=== PATIENT | male | born 1965 | race Caucasian/White ===

== ENCOUNTER 2017-07-13 14:21 | Emergency (ER) | payer SELFPAY ==
[~2017-07-13] VITALS: Ht 180.3 cm; Wt 80.0 kg
[~2017-07-13 14:21] MED LIST: ALBU6.7H INH; ERYT.5%O LEFT EYE; MEDR4PAK3 PO; PERC5TAB12 PO
[2017-07-13 14:23] VITALS: BP 132/72; PULSE 81; RESP 14; TEMP 97.8; O2SAT 97
[2017-07-13] MEDS ORDERED: ALBU6.7H INH (14:34)
[2017-07-13 14:35] VITALS: BP 136/81; PULSE 76; RESP 20; O2SAT 98
[2017-07-13 14:37] VITALS: PULSE 78; RESP 20; O2SAT 98
--- NOTE | 2017-07-13 14:37 | PD ---
HPI Chief Complaint: Respiratory Symptoms Time Seen by Provider: 14:34 Travel History International Travel<30 days: No Contact w/Intl Traveler<30days: No Traveled to known affect area: No History of Present Illness HPI 51-year-old male complains of wheezing and shortness of breath. Patient has history of asthma. Patient states that he has chronic shortness of breath. Patient states that shortness breath is worse today. Patient is a nonsmoker. Patient denies any coughing congestion fever chills. Patient denies any chest pain. Patient has history umbilical hernia recently. Patient states that he gained weight recently. PFSH Past Medical History Asthma: Yes (BRONCHIAL ASTHMA) Diminished Hearing: No Gastrointestinal Disorders: Yes (UMBILICAL HERNIA) Immunizations Current: No ?: Not Social History Alcohol Use: Yes (COUPLE DRINKS A DAY) Tobacco Use: No Substance Use: No Allergies-Medications (Allergen,Severity, Reaction): Coded Allergies: codeine (Verified Adverse Reaction, Intermediate, Rash, 07/13/17) Reported Meds & Prescriptions Reported Meds & Active Scripts Active Prednisone 20 Mg Tab 20 Mg PO BID Ventolin Hfa 18 GM Inh (Albuterol Sulfate) 90 Mcg/Act Aer 2 Puff INH Q4-6H PRN Reported Proventil Hfa 6.7 GM Inh (Albuterol Sulfate) 90 Mcg/Act Aer 2 Puff INH Q4-6H PRN Review of Systems General / Constitutional: No: Fever Eyes: No: Visual changes HENT: No: Headaches Cardiovascular: No: Chest Pain or Discomfort Respiratory: Positive: Shortness of Breath, Wheezing Gastrointestinal: No: Abdominal Pain Genitourinary: No: Dysuria Musculoskeletal: No: Pain Skin: No Rash Neurologic: No: Weakness Psychiatric: No: Depression Endocrine: No: Polydipsia Hematologic/Lymphatic: No: Easy Bruising Physical Exam Narrative GENERAL: Well-nourished, well-developed patient. SKIN: Focused skin assessment warm/dry. HEAD: Normocephalic. EYES: No scleral icterus. No injection or drainage. NECK: Supple, trachea midline. No JVD or lymphadenopathy. CARDIOVASCULAR: Regular rate and rhythm without murmurs, gallops, or rubs. RESPIRATORY: Breath sounds equal bilaterally. No accessory muscle use. Mild expiratory wheezes bilaterally. Few rhonchi at the bases. GASTROINTESTINAL: Abdomen soft, non-tender, nondistended. MUSCULOSKELETAL: No cyanosis, or edema. BACK: Nontender without obvious deformity. No CVA tenderness. Neurologic exam normal. Data Data Last Documented VS Vital Signs Date Time Temp Pulse Resp B/P (MAP) Pulse Ox O2 Delivery O2 Flow Rate FiO2 07/13/17 14:37 78 20 98 Room Air 07/13/17 14:23 97.8 Orders Orders Electrocardiogram (07/13/17 14:34) Oximetry (07/13/17 14:34) Chest, Single Ap (07/13/17 14:34) Albuterol-Ipratropium Neb (Duoneb Neb) (07/13/17 14:45) Dexamethasone Inj (Decadron Inj) (07/13/17 14:45) Ed Discharge Order (07/13/17 15:53) [facility] Medical Decision Making Medical Screen Exam Complete: Yes Emergency Medical Condition: Yes Interpretation(s) Chest x-ray shows no acute consolidation. Differential Diagnosis Differential diagnosis including acute exacerbation asthma, bronchitis, pneumonia. Narrative Course 51-year-old male with shortness of breath and wheezing. History of asthma. Albuterol with Atrovent unit dose treatment times one. Decadron 8 mg IM. Diagnosis Primary Impression: Exacerbation of asthma Qualified Codes: J45.21 - Mild intermittent asthma with (acute) exacerbation Patient Instructions: General Instructions Additional Instructions: Use albuterol inhaler as directed. Prednisone as directed. Follow-up with personal physician. Return if worse. Med/Other Pt SpecificInfo: Prescription(s) given Scripts Prednisone (Prednisone) 20 Mg Tab 20 MG PO BID, #10 TAB 0 Refills Prov: Viraj Valles MD 07/13/17 Albuterol 18 GM Inh (Ventolin Hfa 18 GM Inh) 90 Mcg/Act Aer 2 PUFF INH Q4-6H Y for SHORTNESS OF BREATH, #1 INHALER 0 Refills Prov: Viraj Valles MD 07/13/17 Disposition: 01 DISCHARGE HOME Condition: Stable Viraj Valles MD Jul 13, 2017 14:37
[2017-07-13] MEDS ORDERED: DEXAMETHASONE SOD PHOS 4 MG/ML VIAL IM ONE (14:45)
[2017-07-13] MEDS ORDERED: RESP: ALBUTEROL 2.5 MG/IPRATROPIUM 0.5 MG NEB (SCH) INH ONE (14:45)
--- NOTE | 2017-07-13 15:49 | RADRPT ---
EXAM DATE/TIME: 07/13/2017 15:04 [place] COMPARISON: CHEST SINGLE AP, September 02, 2014, 4:58. INDICATIONS : Short of Breath MEDICAL HISTORY : Asthma, Asbestos exposure SURGICAL HISTORY : None. ENCOUNTER: Initial ACUITY: 1 day PAIN SCORE: 0/10 LOCATION: chest FINDINGS: Single AP view of the chest. The lungs are clear. Cardiomediastinal silhouette within normal limits. No evidence of pleural effusion or pneumothorax. CONCLUSION: No acute cardiopulmonary disease identified. Emerson Montez MD on July 13, 2017 at 15:47 Board Certified Radiologist. This report was verified electronically.
[2017-07-13] MEDS ORDERED: VENTAER INH (15:54)
[2017-07-13] MEDS ORDERED: PRED20 PO (15:54)
[2017-07-13 16:20] VITALS: BP 133/77; TEMP 97.8
--- NOTE | 2017-07-14 12:07 | EKG ---
Date Performed: 07/13/2017 Time Performed: 14:35:39 PTAGE: 51 years EKG: Sinus rhythm NORMAL ECG INTERPRETATION BASED ON A DEFAULT AGE OF 38 YEARS NO PREVIOUS TRACING DOCTOR: Kirit Jaime Interpretating Date/Time 07/14/2017 12:05:25
== END 2017-07-13 16:20 | disposition home or self-care (01) ==
LOC: NEPE 14:21
DX: J45.21 Mild intermittent asthma with (acute) exacerbation (principal)
CPT/HCPCS: 71045; 93005; 94664; 96372; 99284; J1100